=== PATIENT | female | born 2000 | race Hispanic/Latino ===

== ENCOUNTER 2018-01-29 09:33 | Emergency (ER) | payer OTHER, SELFPAY ==
--- NOTE | 2018-01-29 10:11 | EDPHYS ---
Physician Documentation [facility] Name: Brenda Nguyen Age: 17 yrs Sex: Female : 2000 Arrival Date: 01/29/2018 Time: 09:37 Bed 14 Private MD: ED Physician Salvador Ochoa HPI: 01/29 09:58 This 17 yrs old Female presents to ER via Unassigned with complaints of gs Cough,Sore Throat, Headache. 09:58 The patient or guardian reports cough, that is intermittent, flu symptoms, low-grade gs fever, myalgias. Onset: The symptoms/episode began/occurred 2 day(s) ago. Severity of symptoms: At their worst the symptoms were moderate, in the emergency department the symptoms are unchanged. Associated signs and symptoms: Pertinent positives: sore throat. The patient has experienced similar episodes in the past, a few times. 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 ae1 Historical: - Allergies: 10:05 No Known Allergies; gs - Immunization history:: Adult Immunizations up to date. - Social history:: The patient lives at home, Smoking status: Patient/guardian denies using tobacco, but has a distant history of tobacco abuse. ROS: 10:05 ENT: Positive for sinus pain. gs 10:05 Respiratory: Negative for shortness of breath. 10:05 All other systems are negative. 10:05 : Positive for . gs Exam: 10:05 Head/Face: Normocephalic, atraumatic. Eyes: Pupils equal round and reactive to light, gs extra-ocular motions intact. Lids and lashes normal. Conjunctiva and sclera are non-icteric and not injected. Cornea within normal limits. Periorbital areas with no swelling, redness, or edema. Neck: Trachea midline, no thyromegaly or masses palpated, and no cervical lymphadenopathy. Supple, full range of motion without nuchal rigidity, or vertebral point tenderness. No Meningismus. Chest/axilla: Normal chest wall appearance and motion. Nontender with no deformity. No lesions are appreciated. Cardiovascular: Regular rate and rhythm with a normal S1 and S2. No gallops, murmurs, or rubs. Normal PMI, no JVD. No pulse deficits. Respiratory: Lungs have equal breath sounds bilaterally, clear to auscultation and percussion. No rales, rhonchi or wheezes noted. No increased work of breathing, no retractions or nasal flaring. Abdomen/GI: Soft, non-tender, with normal bowel sounds. No distension or tympany. No guarding or rebound. No evidence of tenderness throughout. Back: No spinal tenderness. No costovertebral tenderness. Full range of motion. Skin: Warm, dry with normal turgor. Normal color with no rashes, no lesions, and no evidence of cellulitis. MS/ Extremity: Pulses equal, no cyanosis. Neurovascular intact. Full, normal range of motion. Neuro: Awake and alert, GCS 15, oriented to person, place, time, and situation. Cranial nerves II-XII grossly intact. Motor strength 5/5 in all extremities. Sensory grossly intact. Cerebellar exam normal. Normal gait. 10:05 Constitutional: The patient appears alert, awake. 10:05 ENT: TM's: are normal, Nose: Nasal mucosa: edematous, erythematous, Posterior pharynx: gs is normal, airway is patent, no erythema, no exudate. Vital Signs: 10:19 BP 104 / 64; Pulse 89; Resp 19; Temp 97.7(O); Pulse Ox 98% on R/A; Weight 117.93 kg (R);ae1 MDM: 09:55 Patient medically screened. gs 10:05 Differential Diagnosis: Upper Respiratory Infection Sinusitis Viral Syndrome. Data gs reviewed: vital signs, nurses notes. Response to treatment: There is no appreciated change of the patient's symptoms at this time, and as a result, I will discharge patient. Administered Medications: No medications were administered Disposition: 01/29/18 10:11 Discharged to Home. Impression: Acute upper respiratory infection, unspecified. - Condition is Stable. - Discharge Instructions: Upper Respiratory Infection, Adult. - Work release form, Medication Reconciliation Form, Thank You Letter, Antibiotic Education, Prescription Opioid Use form. - Follow up: Private Physician; When: 1 - 2 days; Reason: Re-evaluation by your physician. Signatures: Raymundo Ellison RN RN ae1 Salvador Ochoa MD MD
--- NOTE | 2018-01-29 10:38 | ER ---
Nurse's Notes [facility] Name: Brenda Nguyen Age: 17 yrs Sex: Female : 2000 Arrival Date: 01/29/2018 Time: 09:37 Bed 14 Private MD: Diagnosis: Acute upper respiratory infection, unspecified Presentation: 01/29 10:24 Presenting complaint: Patient states: Patient c/o "cold Symptoms" sore, throat, nasal ae1 congestion and headache. Patient states she is 27 weeks . Transition of care: patient was not received from another setting of care. Initial Sepsis Screen: Does the patient meet any 2 criteria? No. Patient's initial sepsis screen is negative. Does the patient have a suspected source of infection? No. Patient's initial sepsis screen is negative. 10:24 Acuity: DAIANA 4 ae1 10:24 Method Of Arrival: Ambulatory ae1 10:29 Care prior to arrival: None. ae1 10:32 Onset of symptoms was January 26, 2018 at 08:00. 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 ae1 Historical: - Allergies: 10:05 No Known Allergies; gs - Immunization history:: Adult Immunizations up to date. - Social history:: The patient lives at home, Smoking status: Patient/guardian denies using tobacco, but has a distant history of tobacco abuse. Screenin:29 Abuse screen: Denies threats or abuse. Nutritional screening: No deficits noted. ae1 Tuberculosis screening: No symptoms or risk factors identified. Fall Risk None identified. Assessment: 10:25 General: Appears in no apparent distress. comfortable, obese, Behavior is calm, ae1 cooperative. Pain: Complains of pain in head and back of head. Neuro: Level of Consciousness is awake, alert, obeys commands, Oriented to person, place, time, situation. Cardiovascular: Heart tones S1 S2 present Patient's skin is warm and dry. Respiratory: Airway is patent Respiratory effort is even, unlabored, Breath sounds are clear bilaterally. GI: No signs and/or symptoms were reported involving the gastrointestinal system. Abdomen is round obese. : No signs and/or symptoms were reported regarding the genitourinary system. EENT: Throat is pink. Derm: Skin is pale. Musculoskeletal: No signs and/or symptoms reported regarding the musculoskeletal system. Vital Signs: 10:19 BP 104 / 64; Pulse 89; Resp 19; Temp 97.7(O); Pulse Ox 98% on R/A; Weight 117.93 kg (R);ae1 ED Course: 09:37 Patient arrived in ED. rg4 09:43 Salvador Ochoa MD is Attending Physician. 09:53 Raymundo Ellison, RN is Primary Nurse. ae1 10:25 Triage completed. ae1 10:27 Bed in low position. Call light in reach. Side rails up X 1. Pulse ox on. NIBP on. ae1 10:29 Arm band placed on right wrist. ae1 10:37 No provider procedures requiring assistance completed. Patient did not have IV access ae1 during this emergency room visit. Administered Medications: No medications were administered Outcome: 10:11 Discharge ordered by . gs 10:37 Discharged to home ambulatory. ae1 10:37 Condition: stable 10:37 Discharge instructions given to patient, Instructed on discharge instructions, follow up and referral plans. Demonstrated understanding of instructions. 10:37 Patient left the ED. ae1 Signatures: Raymundo Ellison, RN RN ae1 Christin Sepulveda rg4 Salvador Ochoa MD MD
[2018-01-29 10:49] VITALS: BP 104/64; TEMP 97.7; O2SAT 98
== END 2018-01-29 10:37 | disposition home or self-care (01) ==
LOC: ER 09:33
DX: J06.9 Acute upper respiratory infection, unspecified (principal); Z3A.27 27 weeks gestation of pregnancy
CPT/HCPCS: 99283

== ENCOUNTER 2018-09-28 07:56 | Emergency (ER) | payer OTHER, SELFPAY ==
--- NOTE | 2018-09-28 08:47 | EDPHYS ---
Physician Documentation [facility] Name: Brenda Nguyen Age: 18 yrs Sex: Female : 2000 Arrival Date: 09/28/2018 Time: 07:57 Bed 20 Private MD: None, None ED Physician Irja Dsouza HPI: 09/28 09:09 This 18 yrs old Female presents to ER via Ambulatory with complaints of Flu snw Symptoms. 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 Child dx with influenza. Pt states snw she needs a work excuse. Onset: The symptoms/episode began/occurred 4 day(s) ago, and became persistent. Severity of symptoms: At their worst the symptoms were moderate severe. The patient has not recently seen a physician. hx of asthma. 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 - Social history:: Smoking status: Patient uses tobacco products, smokes one-half pack cigarettes per day. - Ebola Screening: : No symptoms or risks identified at this time. ROS: 08:56 Eyes: Negative for injury, pain, redness, and discharge, ENT: Negative for injury, snw pain, and discharge, Neck: Negative for injury, pain, and swelling, Cardiovascular: Negative for chest pain, palpitations, and edema. 08:56 Abdomen/GI: Negative for abdominal pain, nausea, vomiting, diarrhea, and constipation, Back: Negative for injury and pain, : Negative for injury, bleeding, discharge, and swelling, MS/Extremity: Negative for injury and deformity, Skin: Negative for injury, rash, and discoloration, Neuro: Negative for headache, weakness, numbness, tingling, and seizure. 08:56 Constitutional: Positive for body aches, chills, fatigue, fever, malaise, poor PO intake. 08:56 Respiratory: Positive for cough, shortness of breath, wheezing. Exam: 08:54 Head/Face: Normocephalic, atraumatic. Eyes: Pupils equal round and reactive to light, snw extra-ocular motions intact. Lids and lashes normal. Conjunctiva and sclera are non-icteric and not injected. Cornea within normal limits. Periorbital areas with no swelling, redness, or edema. ENT: Nares patent. No nasal discharge, no septal abnormalities noted. Tympanic membranes are normal and external auditory canals are clear. Oropharynx with no redness, swelling, or masses, exudates, or evidence of obstruction, uvula midline. Mucous membranes moist. Neck: Trachea midline, no thyromegaly or masses palpated, and no cervical lymphadenopathy. Supple, full range of motion without nuchal rigidity, or vertebral point tenderness. No Meningismus. Chest/axilla: Normal chest wall appearance and motion. Nontender with no deformity. No lesions are appreciated. 08:54 Abdomen/GI: Soft, non-tender, with normal bowel sounds. No distension or tympany. No guarding or rebound. No evidence of tenderness throughout. Back: No spinal tenderness. No costovertebral tenderness. Full range of motion. Skin: Warm, dry with normal turgor. Normal color with no rashes, no lesions, and no evidence of cellulitis. MS/ Extremity: Pulses equal, no cyanosis. Neurovascular intact. Full, normal range of motion. Neuro: Awake and alert, GCS 15, oriented to person, place, time, and situation. Cranial nerves II-XII grossly intact. Motor strength 5/5 in all extremities. Sensory grossly intact. Cerebellar exam normal. Normal gait. 08:54 Constitutional: The patient appears alert, awake, obese. 08:54 Cardiovascular: Rate: tachycardic, Pulses: no pulse deficits are appreciated. 08:54 Respiratory: the patient does not display signs of respiratory distress, Respirations: normal, Breath sounds: wheezing: that is mild, that is moderate, is heard in the left posterior lower lobe, right posterior middle lobe and right posterior lower lobe. Vital Signs: 08:16 BP 149 / 87; Pulse 115; Resp 18; Temp 98.4(O); Pulse Ox 96% on R/A; Pain 3/10; em 09:26 BP 138 / 79; Pulse 98; Resp 18; Pulse Ox 98% on R/A; em MDM: 08:17 Patient medically screened. snw 08:56 Data reviewed: vital signs, nurses notes. Data interpreted: Pulse oximetry: on room air snw is 96 %. Interpretation: acceptable. Counseling: I had a detailed discussion with the patient and/or guardian regarding: the historical points, exam findings, and any diagnostic results supporting the discharge/admit diagnosis, the presence of at least one elevated blood pressure reading (>120/80) during this emergency department visit, lab results, the need for outpatient follow up, to return to the emergency department if symptoms worsen or persist or if there are any questions or concerns that arise at home. Special discussion: Based on the history and exam findings, there is no indication for further emergent testing or inpatient evaluation. I discussed with the patient/guardian the need to see the primary care provider for further evaluation of the symptoms. ED course: Pt states she came to ED because her child was dx with influenza, the patient is not feeling well and she needs a work excuse. 09/28 08:02 Order name: Flu; Complete Time: 09:08 snw 09/28 08:02 Order name: Strep snw 09/28 08:02 Order name: Urine Microscopic Only; Complete Time: 09:10 snw 09/28 08:37 Order name: Urine Dipstick--Ancillary (enter results); Complete Time: 09:10 bd 09/28 08:53 Order name: Throat Culture EDMA 09/28 09:12 Order name: Urine Culture EDMA 09/28 08:02 Order name: Urine Test (obtain specimen); Complete Time: 08:34 snw 09/28 08:02 Order name: Urine Dipstick-Ancillary (obtain specimen); Complete Time: 08:34 snw Administered Medications: 08:50 Drug: Albuterol 2.5 mg Route: Inhalation; em 09:00 Follow up: Response: No adverse reaction em Disposition: 09/28/18 08:46 Discharged to Home. Impression: Influenza due to unidentified influenza virus, Asthma. - Condition is Stable. - Discharge Instructions: Asthma, Adult, Fever, Adult, Hypertension, Influenza, Adult, Steps to Quit Smoking, Smoking Hazards, Rehydration, Adult. - Prescriptions for Zofran 4 mg Oral Tablet - take 1 tablet by ORAL route every 12 hours As needed; 20 tablet. Albuterol Sulfate 90 mcg/actuation - inhale 1-2 puff by INHALATION route every 4-6 hours; 1 Inhaler. - Work release form, Medication Reconciliation Form, Thank You Letter, Antibiotic Education, Prescription Opioid Use form. - Follow up: Emergency Department; When: As needed; Reason: Trouble breathing, Worsening of condition. Follow up: Private Physician; When: 2 - 3 days; Reason: Recheck today's complaints, Continuance of care, Re-evaluation by your physician. Addendum: 09/30/2018 15:24 Co-signature as Attending Physician, Iraj Dsouza MD. m a2 Signatures: Dispatcher [employer] EDMS Sagrario Alford, SENIOR GRANT WRITER-C SENIOR GRANT WRITER-Csnw Donn Bates, SHUTTLE FINAL INSPECTOR SHUTTLE FINAL INSPECTOR em Em Irby, RN RN Iraj Dsouza MD MD ma2 Corrections: (The following items were deleted from the chart) 09/28 09:27 08:46 09/28/2018 08:46 Discharged to Home. Impression: Influenza due to unidentified em influenza virus; Asthma. Condition is Stable. Forms are Medication Reconciliation Form, Thank You Letter, Antibiotic Education, Prescription Opioid Use. Follow up: Emergency Department; When: As needed; Reason: Trouble breathing, Worsening of condition. Follow up: Private Physician; When: 2 - 3 days; Reason: Recheck today's complaints, Continuance of care, Re-evaluation by your physician. snw
--- NOTE | 2018-09-28 08:47 | ER ---
Nurse's Notes [facility] Name: Brenda Nguyen Age: 18 yrs Sex: Female : 2000 Arrival Date: 09/28/2018 Time: 07:57 Bed 20 Private MD: None, None Diagnosis: Influenza due to unidentified influenza virus;Asthma Presentation: 09/28 08:14 Presenting complaint: Patient states: Body aches, subjective fever, nonproductive hb cough, mild SOB, and malaise x 4 days. Family member recently dx with flu. Transition of care: patient was not received from another setting of care. Onset of symptoms was September 24, 2018. Risk Assessment: Do you want to hurt yourself or someone else? Patient reports no desire to harm self or others. Care prior to arrival: None. 08:14 Method Of Arrival: Ambulatory hb 08:14 Acuity: DAIANA 3 hb 08:25 Initial Sepsis Screen: Does the patient meet any 2 criteria? No. Patient's initial em sepsis screen is negative. Does the patient have a suspected source of infection? No. Patient's initial sepsis screen is negative. 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 - Social history:: Smoking status: Patient uses tobacco products, smokes one-half pack cigarettes per day. - Ebola Screening: : No symptoms or risks identified at this time. Screenin:17 Abuse screen: Denies threats or abuse. Denies injuries from another. Nutritional hb screening: No deficits noted. Tuberculosis screening: No symptoms or risk factors identified. Fall Risk None identified. Assessment: 08:30 General: Appears in no apparent distress. uncomfortable, Behavior is calm, cooperative, em Reports fever for feeling ill for. Pain: Complains of pain in chest Pain currently is 3 out of 10 on a pain scale. Neuro: Level of Consciousness is awake, alert, obeys commands, Oriented to person, place, time, situation. Cardiovascular: Patient's skin is warm and dry. Respiratory: Reports cough that is productive, pain with cough Airway is patent Respiratory effort is even, unlabored, Respiratory pattern is regular, symmetrical, Breath sounds with wheezes in left posterior lower lobe and right posterior lower lobe. GI:. : Urine is clear. EENT: Reports nasal congestion nasal discharge sore throat. Derm: Skin is intact, is healthy with good turgor, Skin is pink, warm \T\ dry. Musculoskeletal: Range of motion: intact in all extremities. 08:40 Reassessment: I agree with previous assessment. hb 09:26 Reassessment: Patient appears in no apparent distress at this time. Patient and/or em family updated on plan of care and expected duration. Pain level reassessed. Patient is alert, oriented x 3, equal unlabored respirations, skin warm/dry/pink. Patient states feeling better. Vital Signs: 08:16 BP 149 / 87; Pulse 115; Resp 18; Temp 98.4(O); Pulse Ox 96% on R/A; Pain 3/10; em 09:26 BP 138 / 79; Pulse 98; Resp 18; Pulse Ox 98% on R/A; em ED Course: 07:57 Patient arrived in ED. mr 07:58 None, None is Private Physician. mr 08:01 Sagrario Alford, PINA is [facility]. snw 08:01 Iraj Dsouza MD is Attending Physician. snw 08:12 Donn Bates LVN is Primary Nurse. em 08:16 Triage completed. hb 08:16 Arm band placed on. hb 08:30 Patient has correct armband on for positive identification. Bed in low position. Call em light in reach. Pulse ox on. NIBP on. 08:35 Urine collected: clean catch specimen, clear, Flu and/or RSV swab sent to lab. Strep em swab sent to lab. 08:54 No provider procedures requiring assistance completed. Patient did not have IV access em during this emergency room visit. Administered Medications: 08:50 Drug: Albuterol 2.5 mg Route: Inhalation; em 09:00 Follow up: Response: No adverse reaction em Outcome: 08:46 Discharge ordered by . snw 09:26 Discharged to home ambulatory. em 09:26 Condition: good 09:26 Discharge instructions given to patient, Instructed on discharge instructions, follow up and referral plans. medication usage, Demonstrated understanding of instructions, follow-up care, medications, Prescriptions given X 2. 09:27 Patient left the ED. em Signatures: Sagrario Alford, SED MIDDLE SCHOOL TEACHER-C SED MIDDLE SCHOOL TEACHER-Csnw Jannie Mittal mr Bates, Donn, FIRESTOPPER INSTALLER FIRESTOPPER INSTALLER em Em Irby, RN RN hb Corrections: (The following items were deleted from the chart) 08:39 08:16 BP 149 / 87; Pulse 115bpm; Resp 18bpm; Temp 98.4F Oral; Pain 3/10; hb em
[2018-09-28] MEDS ORDERED: ALBUTEROL 2.5 MG/3 ML NEB SOL ONE (08:52)
[2018-09-28 09:09] LABS: Urine Bacteria 20-50 /HPF (<20); Urine Culture Reflex Order REFLEXED; Urine Mucus 2+ /HPF (NONE SEEN)
[2018-09-28 09:10] LABS: Urine Blood 2+ (NEG); Urine Glucose NEGATIVE (NEG); Urine Protein NEGATIVE (NEG); Urine Specific Gravity 1.025 (1.005-1.030); Urine pH 5.5 (5.0-7.0)
[2018-09-28 10:00] VITALS: TEMP 98.4
[2018-09-28 10:02] VITALS: BP 138/79; O2SAT 98
== END 2018-09-28 09:27 | disposition home or self-care (01) ==
LOC: ER 07:56
DX: J11.1 Influenza due to unidentified influenza virus with other respiratory manifestations (principal); J45.909 Unspecified asthma, uncomplicated
CPT/HCPCS: 81003; 81015; 87070; 87081; 87086; 87088; 87804; 99284

== ENCOUNTER 2018-12-20 15:37 | Emergency (ER) | payer SELFPAY ==
--- OUTSIDE RECORDS SUMMARY | 2018-12-20 15:39 | XMS REPORT ---
:2000 [facility] [address] [place] [address] Care Team Providers Name Role Phone Unavailable Unavailable Unavailable Problems This patient has no known problems. Allergies, Adverse Reactions, Alerts This patient has no known allergies or adverse reactions. Medications This patient has no known medications.
[2018-12-20] MEDS ORDERED: MAGNE/ALUM HYDROXD 30 ML UCUP ONE (16:35)
[2018-12-20] MEDS ORDERED: ONDANSETRON 4 MG (ODT) TAB ONE (16:35)
[2018-12-20] MEDS ORDERED: LIDOCAINE VISCOUS 2% SOLN 15 ML UDC ONE (16:36)
[2018-12-20 17:04] LABS: Urine Bacteria 20-50 /HPF (<20); Urine Culture Reflex Order REFLEXED; Urine RBC <5 /HPF (NONE SEEN)
[2018-12-20 17:09] LABS: Urine Blood NEGATIVE (NEG); Urine Glucose NEGATIVE (NEG); Urine Protein 1+ (NEG); Urine Specific Gravity >1.030 (1.005-1.030); Urine pH 5.5 (5.0-7.0)
--- NOTE | 2018-12-20 17:29 | ER ---
Nurse's Notes [facility] Name: Brenda Nguyen Age: 18 yrs Sex: Female : 2000 Arrival Date: 12/20/2018 Time: 15:39 Bed 15 Private MD: None, None Diagnosis: Urinary tract infection, site not specified;Generalized abdominal pain;Vomiting, unspecified;Diarrhea, unspecified Presentation: 12/20 15:52 Presenting complaint: Patient states: epigastric pain, n/v/d x 1 day. Transition of sv care: patient was not received from another setting of care. Onset of symptoms was December 19, 2018. Care prior to arrival: None. 15:52 Method Of Arrival: Ambulatory sv 15:52 Acuity: DAIANA 3 sv 17:46 Risk Assessment: Do you want to hurt yourself or someone else? Patient reports no bp desire to harm self or others. Initial Sepsis Screen: Does the patient meet any 2 criteria? No. Patient's initial sepsis screen is negative. Does the patient have a suspected source of infection? No. Patient's initial sepsis screen is negative. Triage Assessment: 16:00 General: Appears in no apparent distress. comfortable, obese, Behavior is calm, bp cooperative, appropriate for age. Pain: Complains of pain in epigastric area. GI: Reports nausea, vomiting. 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 - Social history:: Smoking status: Patient/guardian denies using tobacco. - Ebola Screening: : Patient negative for fever greater than or equal to 101.5 degrees Fahrenheit, and additional compatible Ebola Virus Disease symptoms Patient denies exposure to infectious person Patient denies travel to an Ebola-affected area in the 21 days before illness onset No symptoms or risks identified at this time. Screenin:00 Abuse screen: Denies threats or abuse. Denies injuries from another. Nutritional bp screening: No deficits noted. Tuberculosis screening: No symptoms or risk factors identified. Fall Risk None identified. Assessment: 16:00 General: Appears in no apparent distress. comfortable, obese, Behavior is cooperative, bp appropriate for age, anxious. Pain: Complains of pain in epigastric area. Neuro: Level of Consciousness is awake, alert, obeys commands. Cardiovascular: No deficits noted. Respiratory: Airway is patent Respiratory effort is even, unlabored, Respiratory pattern is regular, symmetrical. GI: Bowel sounds present X 4 quads. Abd is soft X 4 quads. : No signs and/or symptoms were reported regarding the genitourinary system. EENT: No deficits noted. Derm: No deficits noted. Musculoskeletal: Circulation, motion, and sensation intact. Range of motion:. 17:46 Reassessment: PT D/C HOME AMBULATORY, DX WITH UTI. bp Vital Signs: 15:53 BP 133 / 79; Pulse 89; Resp 18; Temp 97.8; Pulse Ox 98% ; Weight 131.54 kg; Height 5 sv ft. 2 in. (157.48 cm); Pain 6/10; 17:30 BP 130 / 81; Pulse 75; Resp 16; Pulse Ox 98% ; bp 15:53 Body Mass Index 53.04 (131.54 kg, 157.48 cm) sv ED Course: 15:39 Patient arrived in ED. mr 15:40 None, None is Private Physician. mr 15:40 Sagr[facility] Alford [facility] snw 15:40 Rancho Charles MD is Attending Physician. snw 15:53 Triage completed. sv 15:54 Arm band placed on. sv 15:55 Lit Kc, JAIDEN is Primary Nurse. bp 16:00 Patient has correct armband on for positive identification. Bed in low position. Call bp light in reach. Side rails up X2. 17:43 No provider procedures requiring assistance completed. Patient did not have IV access bp during this emergency room visit. Administered Medications: 16:20 Drug: Zofran 4 mg Route: PO; bp 17:48 Follow up: Response: No adverse reaction bp 16:20 Drug: GI Cocktail without - (Maalox Suspension 30 ml, Lidocaine Liquid 2 % 15 bp ml) Route: PO; 17:48 Follow up: Response: No adverse reaction bp Outcome: 17:28 Discharge ordered by . snw 17:45 Discharged to home ambulatory. bp 17:45 Condition: stable 17:45 Discharge instructions given to patient, Instructed on discharge instructions, follow up and referral plans. medication usage, Demonstrated understanding of instructions, follow-up care, medications, Prescriptions given X 2. 17:48 Patient left the ED. bp Signatures: Tracie Goff RN RN Sagrario Alford, LOTUS-C SOLUTIONS OPERATOR-Juan Manuelw Jannie Mittal Lit Kc, RN RN bp Corrections: (The following items were deleted from the chart) 15:54 15:53 Resp 18bpm; Temp 97.8F; 131.54 kg; Height 5 ft. 2 in.; BMI: 53.0; Pain 6/10; sv sv 15:55 15:53 Pulse 89bpm; Resp 18bpm; Pulse Ox 98%; Temp 97.8F; 131.54 kg; Height 5 ft. 2 in.; sv BMI: 53.0; Pain 6/10; sv
--- NOTE | 2018-12-20 17:29 | EDPHYS ---
Physician Documentation [facility] Name: Brenda Nguyen Age: 18 yrs Sex: Female : 2000 Arrival Date: 12/20/2018 Time: 15:39 Bed 15 Private MD: None, None ED Physician Rancho Charles HPI: 12/20 16:23 This 18 yrs old Female presents to ER via Ambulatory with complaints of snw Abdominal Pain, Nausea/Vomiting. 16:23 The patient presents with abdominal pain in the epigastric area, in the upper abdomen. snw Onset: The symptoms/episode began/occurred suddenly, 2 day(s) ago, and became persistent. The symptoms do not radiate. Associated signs and symptoms: Pertinent positives: nausea, vomiting, and diarrhea, fever. The symptoms are described as crampy. Severity of pain: At its worst the pain was mild moderate. The patient has experienced a previous episode. It is unknown whether or not the patient has recently seen a physician. 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 - Social history:: Smoking status: Patient/guardian denies using tobacco. - Ebola Screening: : Patient negative for fever greater than or equal to 101.5 degrees Fahrenheit, and additional compatible Ebola Virus Disease symptoms Patient denies exposure to infectious person Patient denies travel to an Ebola-affected area in the 21 days before illness onset No symptoms or risks identified at this time. ROS: 16:22 Eyes: Negative for injury, pain, redness, and discharge, ENT: Negative for injury, snw pain, and discharge, Neck: Negative for injury, pain, and swelling, Cardiovascular: Negative for chest pain, palpitations, and edema, Respiratory: Negative for shortness of breath, cough, wheezing, and pleuritic chest pain, Back: Negative for injury and pain, : Negative for injury, bleeding, discharge, and swelling, MS/Extremity: Negative for injury and deformity, Skin: Negative for injury, rash, and discoloration, Neuro: Negative for headache, weakness, numbness, tingling, and seizure. 16:22 Constitutional: Positive for body aches, chills, fever, malaise, poor PO intake. 16:22 Abdomen/GI: Positive for abdominal pain, nausea, vomiting, and diarrhea. Exam: 16:22 Head/Face: Normocephalic, atraumatic. Eyes: Pupils equal round and reactive to light, snw extra-ocular motions intact. Lids and lashes normal. Conjunctiva and sclera are non-icteric and not injected. Cornea within normal limits. Periorbital areas with no swelling, redness, or edema. ENT: Nares patent. No nasal discharge, no septal abnormalities noted. Tympanic membranes are normal and external auditory canals are clear. Oropharynx with no redness, swelling, or masses, exudates, or evidence of obstruction, uvula midline. Mucous membranes moist. Neck: Trachea midline, no thyromegaly or masses palpated, and no cervical lymphadenopathy. Supple, full range of motion without nuchal rigidity, or vertebral point tenderness. No Meningismus. Chest/axilla: Normal chest wall appearance and motion. Nontender with no deformity. No lesions are appreciated. Cardiovascular: Regular rate and rhythm with a normal S1 and S2. No gallops, murmurs, or rubs. Normal PMI, no JVD. No pulse deficits. Respiratory: Lungs have equal breath sounds bilaterally, clear to auscultation and percussion. No rales, rhonchi or wheezes noted. No increased work of breathing, no retractions or nasal flaring. Back: No spinal tenderness. No costovertebral tenderness. Full range of motion. Skin: Warm, dry with normal turgor. Normal color with no rashes, no lesions, and no evidence of cellulitis. MS/ Extremity: Pulses equal, no cyanosis. Neurovascular intact. Full, normal range of motion. Neuro: Awake and alert, GCS 15, oriented to person, place, time, and situation. Cranial nerves II-XII grossly intact. Motor strength 5/5 in all extremities. Sensory grossly intact. Cerebellar exam normal. Normal gait. Psych: Awake, alert, with orientation to person, place and time. Behavior, mood, and affect are within normal limits. 16:22 Constitutional: The patient appears alert, awake, obese. 16:22 Abdomen/GI: Inspection: obese Bowel sounds: normal, Palpation: moderate abdominal tenderness, in the epigastric area, right upper quadrant and left upper quadrant. Vital Signs: 15:53 BP 133 / 79; Pulse 89; Resp 18; Temp 97.8; Pulse Ox 98% ; Weight 131.54 kg; Height 5 sv ft. 2 in. (157.48 cm); Pain 6/10; 17:30 BP 130 / 81; Pulse 75; Resp 16; Pulse Ox 98% ; bp 15:53 Body Mass Index 53.04 (131.54 kg, 157.48 cm) sv MDM: 15:55 Patient medically screened. kelli 17:30 Data reviewed: vital signs, nurses notes. Data interpreted: Pulse oximetry: on room air snw is 98 %. Interpretation: normal. Counseling: I had a detailed discussion with the patient and/or guardian regarding: the historical points, exam findings, and any diagnostic results supporting the discharge/admit diagnosis, the presence of at least one elevated blood pressure reading (>120/80) during this emergency department visit, lab results, the need for outpatient follow up, for definitive care, to return to the emergency department if symptoms worsen or persist or if there are any questions or concerns that arise at home. Special discussion: Based on the history and exam findings, there is no indication for further emergent testing or inpatient evaluation. I discussed with the patient/guardian the need to see the primary care provider for further evaluation of the symptoms. 12/20 16:11 Order name: Flu; Complete Time: 17:27 snw 12/20 16:11 Order name: Urine Microscopic Only; Complete Time: 17:06 snw 12/20 16:45 Order name: Urine Dipstick--Ancillary (enter results); Complete Time: 17:11 bd 12/20 16:45 Order name: Urine --Ancillary (enter results); Complete Time: 17:11 bd 12/20 17:06 Order name: Urine Culture EDMS 12/20 16:11 Order name: Urine Test (obtain specimen); Complete Time: 16:37 snw 12/20 16:11 Order name: Urine Dipstick-Ancillary (obtain specimen); Complete Time: 16:37 snw Administered Medications: 16:20 Drug: Zofran 4 mg Route: PO; bp 17:48 Follow up: Response: No adverse reaction bp 16:20 Drug: GI Cocktail without - (Maalox Suspension 30 ml, Lidocaine Liquid 2 % 15 bp ml) Route: PO; 17:48 Follow up: Response: No adverse reaction bp Disposition: 12/21 08:08 Co-signature as Attending Physician, Rancho Charles MD I agree with the assessment and kelli plan of care. Disposition: 12/20/18 17:28 Discharged to Home. Impression: Urinary tract infection, site not specified, Generalized abdominal pain, Vomiting, unspecified, Diarrhea, unspecified. - Condition is Stable. - Discharge Instructions: Food Choices to Help Relieve Diarrhea, Adult, Diarrhea, Adult, Nausea and Vomiting, Adult, Urinary Tract Infection, Adult, Rehydration, Adult, [place] Diet. - Prescriptions for Zofran 4 mg Oral Tablet - take 1 tablet by ORAL route every 6 hours As needed; 20 tablet. Macrobid 100 mg Oral Capsule - take 1 capsule by ORAL route every 12 hours for 10 days; 20 capsule. - Work release form, Medication Reconciliation Form, Thank You Letter, Antibiotic Education, Prescription Opioid Use form. - Follow up: Private Physician; When: 2 - 3 days; Reason: Recheck today's complaints, Continuance of care, Re-evaluation by your physician. Follow up: Emergency Department; When: As needed; Reason: Worsening of condition. Signatures: Dispatcher [employer] Tracie Lira, RN Rancho Montgomery MD MD cha Therrien, Shelly, DRIER TAKE OFF TENDER-C DRIER TAKE OFF TENDER-Csnw Lit Kc RN RN bp Corrections: (The following items were deleted from the chart) 12/20 17:48 17:28 12/20/2018 17:28 Discharged to Home. Impression: Urinary tract infection, site bp not specified; Generalized abdominal pain; Vomiting, unspecified; Diarrhea, unspecified. Condition is Stable. Forms are Medication Reconciliation Form, Thank You Letter, Antibiotic Education, Prescription Opioid Use. Follow up: Private Physician; When: 2 - 3 days; Reason: Recheck today's complaints, Continuance of care, Re-evaluation by your physician. Follow up: Emergency Department; When: As needed; Reason: Worsening of condition. snw
[2018-12-20 18:00] VITALS: BP 130/81; O2SAT 98
[2018-12-20 18:01] VITALS: TEMP 97.8
== END 2018-12-20 17:48 | disposition home or self-care (01) ==
LOC: ER 15:37
DX: N39.0 Urinary tract infection, site not specified (principal); R19.7 Diarrhea, unspecified; R11.10 Vomiting, unspecified
CPT/HCPCS: 81003; 81015; 81025; 87086; 87088; 87804; 99283

== ENCOUNTER 2019-03-28 21:06 | Emergency (ER) | payer SELFPAY ==
--- OUTSIDE RECORDS SUMMARY | 2019-03-28 21:08 | XMS REPORT ---
:2000 [facility] Address [address] [place] [address] [address] [place] [address] Care Team Providers Name Role Phone Unavailable Unavailable Unavailable Problems This patient has no known problems. Allergies, Adverse Reactions, Alerts This patient has no known allergies or adverse reactions. Medications This patient has no known medications.
[2019-03-28] MEDS ORDERED: FAMOTIDINE 20 MG/2 ML VIAL IV ONE (22:00)
[2019-03-28] MEDS ORDERED: MAGNE/ALUM HYDROXD 30 ML UCUP ONE (22:00)
[2019-03-28] MEDS ORDERED: NA CHLORIDE 0.9% 1,000 ML ONE (22:01)
[2019-03-28] MEDS ORDERED: LIDOCAINE VISCOUS 2% SOLN 15 ML UDC ONE (22:01)
[2019-03-28 22:05] LABS: Urine Specific Gravity >1.030 (1.005-1.030)
[2019-03-28 22:05] LABS: Urine Blood NEGATIVE (NEG); Urine Glucose NEGATIVE (NEG); Urine Protein TRACE (NEG); Urine Specific Gravity >1.030 (1.005-1.030); Urine pH 5.5 (5.0-7.0)
[2019-03-28 22:11] LABS: Urine Amorphous Sediment TRACE /HPF (NONE SEEN); Urine Bacteria <20 /HPF (<20); Urine Culture Reflex Order NOT NEEDED; Urine RBC NONE SEEN /HPF (NONE SEEN)
[2019-03-28 22:14] LABS: ALT/SGPT 23 U/L (12-78); AST/SGOT 16 U/L (15-37); Albumin 3.6 g/dL (3.4-5.0); Alkaline Phosphatase 107 U/L (45-117); BUN Blood Urea Nitrogen 13 mg/dL (7-18); Bicarbonate 24 mmol/L (21-32); Bilirubin Direct 0.2 mg/dL (0-0.2); Bilirubin Total 0.9 mg/dL (0.2-1.0); Glucose Level 117 mg/dL (74-106); Potassium 3.8 mmol/L (3.5-5.1); Protein, Total 7.1 g/dL (6.4-8.2); Sodium Level 142 mmol/L (136-145)
[2019-03-28 22:20] LABS: Absolute Lymphocytes (CBC) 1.8 K/uL (0.7-4.9); Basophils % 0.2 % (0-1.3); Hematocrit 41.9 % (36.0-45.0); Lymphocytes % 23.3 % (15.3-44.8); MPV 8.9 fL (7.6-11.3); Monocytes % 6.4 % (3.3-12.3); RBC Red Blood Cell Count 4.98 M/uL (3.86-4.86)
--- NOTE | 2019-03-28 22:38 | EDPHYS ---
Physician Documentation [facility] Name: Brenda Nguyen Age: 18 yrs Sex: Female : 2000 Arrival Date: 03/28/2019 Time: 21:13 Bed 5 Private MD: ED Physician Gary Eagle HPI: 03/28 21:37 This 18 yrs old Female presents to ER via Ambulatory with complaints of rn Abdominal Pain. 21:37 The patient presents with abdominal pain in the epigastric area. Onset: The rn symptoms/episode began/occurred at an unknown time. The symptoms do not radiate. Associated signs and symptoms: Pertinent positives: diarrhea, nausea, Pertinent negatives: blood in stools, chest pain, constipation, dysuria, fever, shortness of breath, vomiting blood. Modifying factors: The symptoms are alleviated by nothing, the symptoms are aggravated by food, pressure. Severity of pain: At its worst the pain was moderate in the emergency department the pain has improved. The patient has experienced similar episodes in the past. Reports happening intermittently for "a while", + epigastric abd pain, worse shortly after eating food, no blood in stool, no trauma, has had gallbladder removed. NO chest pain. Has had acid problems in past but doesn't take daily antacid. No vomiting. Most recently today had spicy soup that made things worse.. 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 - Family history:: not pertinent. - Social history:: Smoking status: unknown. - Ebola Screening: : No symptoms or risks identified at this time. - Hospitalizations: : No recent hospitalization is reported. ROS: 21:37 Constitutional: Negative for fever, chills, and weight loss, Eyes: Negative for injury, rn pain, redness, and discharge, Cardiovascular: Negative for chest pain, palpitations, and edema, Respiratory: Negative for shortness of breath, cough, wheezing, and pleuritic chest pain, Abdomen/GI: + epigastric abd pain Back: Negative for injury and pain, : Negative for injury, bleeding, discharge, and swelling, MS/Extremity: Negative for injury and deformity, Skin: Negative for injury, rash, and discoloration, Neuro: Negative for headache, weakness, numbness, tingling, and seizure. Exam: 21:37 Constitutional: Overweight female, no acute distress, ambulatory to room without rn difficulty or assistance Head/Face: Normocephalic, atraumatic. ENT: MMM Cardiovascular: Tachycardic, regular, no murmur Respiratory: Lungs have equal breath sounds bilaterally, clear to auscultation. No increased work of breathing, no retractions or nasal flaring. Abdomen/GI: soft, mild epigastric tenderness without masses or distension MS/ Extremity: Pulses equal, no cyanosis. Neurovascular intact. Full, normal range of motion. Equal circumference. Neuro: Awake and alert, GCS 15, oriented to person, place, time, and situation. Cranial nerves II-XII grossly intact. Motor strength 5/5 in all extremities. Sensory grossly intact. Cerebellar exam normal. Normal gait. Vital Signs: 21:14 BP 124 / 47; Pulse 110; Resp 19; Temp 97.8; Pulse Ox 97% on R/A; Weight 142.88 kg; aj Height 5 ft. 2 in. (157.48 cm); 23:00 BP 99 / 61; Pulse 104; Resp 16 S; Temp 98.2(O); Pulse Ox 98% on R/A; bb 21:14 Body Mass Index 57.61 (142.88 kg, 157.48 cm) aj MDM: 21:30 Patient medically screened. rn 22:36 Differential diagnosis: gastritis, gastroesophageal reflux disease, non-specific abd rn pain, pancreatitis, Peptic Ulcer Disease. Data reviewed: vital signs, nurses notes, lab test result(s), and as a result, I will discharge patient. Counseling: I had a detailed discussion with the patient and/or guardian regarding: the historical points, exam findings, and any diagnostic results supporting the discharge/admit diagnosis, lab results, the need for outpatient follow up, to return to the emergency department if symptoms worsen or persist or if there are any questions or concerns that arise at home. Response to treatment: the patient's symptoms have mildly improved after treatment, and as a result, I will discharge patient. Special discussion: Based on the patient's Hx, exam, and Dx evaluation, there is no indication for emergent surgery or inpatient Tx. It is understood by the patient/guardian that if the Sx's persist or worsen they need to return immediately for re-evaluation. I discussed with the patient/guardian in detail that at this point there is no indication for admission to the hospital. It is understood, however, that if the symptoms persist or worsen the patient needs to return immediately for re-evaluation. Based on the history and exam findings, there is no indication for further emergent testing or inpatient evaluation. I discussed with the patient/guardian the need to see the head of data for further evaluation of the symptoms. ED course: Gave patient information regarding better diet, weight loss, and talked about acid management. Will dc home. . 03/28 21:21 Order name: Urine Microscopic Only; Complete Time: 22:35 [facility] 03/28 21:31 Order name: Basic Metabolic Panel; Complete Time: 22:35 03/28 21:31 Order name: CBC with Diff; Complete Time: 22:35 03/28 21:31 Order name: Hepatic Function; Complete Time: 22:35 03/28 21:31 Order name: Lipase; Complete Time: 22:35 03/28 21:59 Order name: Urine Dipstick--Ancillary (enter results); Complete Time: 22:35 [facility] 03/28 21:21 Order name: Urine Test (obtain specimen); Complete Time: 21:59 [facility] 03/28 21:21 Order name: Urine Dipstick-Ancillary (obtain specimen); Complete Time: 21:59 [facility] 03/28 22:00 Order name: Urine --Ancillary (enter results); Complete Time: 22:35 [facility] 03/28 21:31 Order name: IV Saline Lock; Complete Time: 21:45 03/28 21:31 Order name: Labs collected and sent; Complete Time: 21:45 rn Administered Medications: 21:55 Drug: NS 0.9% 1000 ml Route: IV; Rate: 1000 ml; Site: right antecubital; bb 22:50 Follow up: IV Status: Completed infusion; IV Intake: 1000ml bb :55 Drug: GI Cocktail without - (Maalox Suspension 30 ml, Lidocaine Liquid 2 % 15 bb ml) Route: PO; 22:38 Follow up: Response: Marked relief of symptoms bb 21:55 Drug: Pepcid 20 mg Route: IVP; Site: right antecubital; bb 22:38 Follow up: Response: Marked relief of symptoms bb 22:13 CANCELLED (Other Intervention Used): Pepcid 20 mg PO once bb Disposition: 03/28/19 22:37 Discharged to Home. Impression: Gastritis, unspecified, without bleeding. - Condition is Stable. - Discharge Instructions: Gastritis, Adult. - Prescriptions for Zantac 300 mg Oral Tablet - take 1 tablet by ORAL route At bedtime; 30 tablet. - Medication Reconciliation Form, Thank You Letter, Antibiotic Education, Prescription Opioid Use form. - Follow up: Miguel Crockett MD; When: As needed; Reason: Recheck today's complaints, Re-evaluation by your physician. - Problem is new. - Symptoms have improved. Signatures: Dispatcher [employer] EDMS Sue Limon, RN RN Sagrario Nieves, CABLE ENGINEER OUTSIDE PLANT-C CABLE ENGINEER OUTSIDE PLANT-Csnw Kathy Gary RN RN Gary Domínguez MD MD rn Corrections: (The following items were deleted from the chart) 21:42 21:22 Abdomen Limited+[id number].RAD.BRZ ordered. EDWA EDMS 22:13 21:37 Pepcid 20 mg PO once ordered. rn bb 22:13 21:55 Pepcid 20 mg PO once given. bb bb 22:13 21:55 Pepcid 20 mg PO once ordered. bb bb 23:01 22:37 03/28/2019 22:37 Discharged to Home. Impression: Gastritis, unspecified, without bb bleeding. Condition is Stable. Forms are Medication Reconciliation Form, Thank You Letter, Antibiotic Education, Prescription Opioid Use. Follow up: Miguel Crockett; When: As needed; Reason: Recheck today's complaints, Re-evaluation by your physician. Problem is new. Symptoms have improved. rn
--- NOTE | 2019-03-28 22:38 | ER ---
Nurse's Notes [facility] Name: Brenda Nguyen Age: 18 yrs Sex: Female : 2000 Arrival Date: 03/28/2019 Time: 21:13 Bed 5 Private MD: Diagnosis: Gastritis, unspecified, without bleeding Presentation: 03/28 21:13 Presenting complaint: Patient states: Upper abdominal pain that started 2 days ago. aj Care prior to arrival: None. 21:13 Method Of Arrival: Ambulatory aj 21:13 Acuity: DAIANA 3 aj 21:58 Transition of care: patient was not received from another setting of care. Onset of bb symptoms was March 26, 2019. Risk Assessment: Do you want to hurt yourself or someone else? Patient reports desire/thoughts of hurting themselves or someone else. Provider notified. Initial Sepsis Screen: Does the patient meet any 2 criteria? No. Patient's initial sepsis screen is negative. Does the patient have a suspected source of infection? No. Patient's initial sepsis screen is negative. Triage Assessment: 21:14 General: Appears in no apparent distress. comfortable, Behavior is calm, cooperative, aj appropriate for age. Pain: Complains of pain in right upper quadrant and left upper quadrant. Respiratory: Airway is patent Respiratory effort is even, unlabored, Respiratory pattern is regular, symmetrical. GI: Abdomen is obese. GI: Reports upper abdominal pain. Derm: Skin is intact, is healthy with good turgor, Skin is pink, warm \T\ dry. normal. 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 - Family history:: not pertinent. - Social history:: Smoking status: unknown. - Ebola Screening: : No symptoms or risks identified at this time. - Hospitalizations: : No recent hospitalization is reported. Screenin:56 Abuse screen: Denies threats or abuse. Nutritional screening: No deficits noted. bb Tuberculosis screening: No symptoms or risk factors identified. Fall Risk None identified. Assessment: 21:56 General: Appears in no apparent distress. uncomfortable, obese, Behavior is calm, bb cooperative, Reports abdominal pain and diarrhea x 2 days. Pain: Complains of pain in abdomen Pain currently is 6 out of 10 on a pain scale. Neuro: Level of Consciousness is awake, alert, obeys commands, Oriented to person, place, time, situation. Cardiovascular: Heart tones S1 S2 present Capillary refill < 3 seconds Patient's skin is warm and dry. Respiratory: Airway is patent Respiratory effort is even, unlabored, Respiratory pattern is regular. GI: Abdomen is obese, Bowel sounds present X 4 quads. Abd is soft X 4 quads. Derm: Skin is pink, warm \T\ dry. Musculoskeletal: Circulation, motion, and sensation intact. 22:37 Reassessment: pt appears to be sleeping, eyes closed, resp unlabored, IV site intact, bb patent with fluids infusing. 22:57 Reassessment: Patient is alert, oriented x 3, equal unlabored respirations, skin bb warm/dry/pink. pt states she is feeling better and verbalized understanding of and agrees to plan of care discharge instructions given pt ambulated with steady gait to exit. Vital Signs: 21:14 BP 124 / 47; Pulse 110; Resp 19; Temp 97.8; Pulse Ox 97% on R/A; Weight 142.88 kg; aj Height 5 ft. 2 in. (157.48 cm); 23:00 BP 99 / 61; Pulse 104; Resp 16 S; Temp 98.2(O); Pulse Ox 98% on R/A; bb 21:14 Body Mass Index 57.61 (142.88 kg, 157.48 cm) aj ED Course: 21:13 Patient arrived in ED. aj 21:14 Triage completed. aj 21:14 Arm band placed on right wrist. Patient placed in waiting room, Patient notified of aj wait time. 21:30 Gary Eagle MD is Attending Physician. rn 21:38 Kathy Gary, JAIDEN is Primary Nurse. bb 21:45 Initial lab(s) drawn, by sc, sent to lab. Inserted saline lock: 20 gauge in right lt1 antecubital area, using aseptic technique. 21:56 Patient has correct armband on for positive identification. Placed in gown. Bed in low bb position. Call light in reach. Side rails up X 1. Pulse ox on. NIBP on. Warm blanket given. 21:59 Urine Microscopic Only Sent. lt1 22:36 Miguel Crockett MD is Referral Physician. rn 22:50 IV discontinued, intact, bleeding controlled, No redness/swelling at site. Pressure bb dressing applied. 23:00 No provider procedures requiring assistance completed. bb Administered Medications: 21:55 Drug: NS 0.9% 1000 ml Route: IV; Rate: 1000 ml; Site: right antecubital; bb 22:50 Follow up: IV Status: Completed infusion; IV Intake: 1000ml bb :55 Drug: GI Cocktail without - (Maalox Suspension 30 ml, Lidocaine Liquid 2 % 15 bb ml) Route: PO; 22:38 Follow up: Response: Marked relief of symptoms bb :55 Drug: Pepcid 20 mg Route: IVP; Site: right antecubital; bb 22:38 Follow up: Response: Marked relief of symptoms bb 22:13 CANCELLED (Other Intervention Used): Pepcid 20 mg PO once bb Intake: 22:50 IV: 1000ml; Total: 1000ml. bb Outcome: 22:37 Discharge ordered by . rn 23:00 Discharged to home ambulatory. bb 23:00 Condition: stable 23:00 Discharge instructions given to patient, Instructed on discharge instructions, follow up and referral plans. medication usage, Demonstrated understanding of instructions, follow-up care, medications, Prescriptions given X 1. 23:01 Patient left the ED. bb Signatures: Sue Limon RN RN aj Ballard, Brenda, RN RN bb Nieto, Roman, MD MD rn Tran, Leah lt1 Corrections: (The following items were deleted from the chart) : 21:55 Pepcid 20 mg PO bb bb
[2019-03-29 01:44] VITALS: BP 99/61; TEMP 98.2; O2SAT 98
== END 2019-03-28 23:01 | disposition home or self-care (01) ==
LOC: ER 21:06
DX: K29.70 Gastritis, unspecified, without bleeding (principal)
CPT/HCPCS: 36415; 80048; 80076; 81003; 81015; 81025; 83690; 85025; 96361; 96374; 99284; J7030

== ENCOUNTER 2024-12-16 17:34 | Emergency (ER) | payer SELFPAY ==
--- OUTSIDE RECORDS SUMMARY | 2024-12-16 17:37 | XMS REPORT | Continuity of Care Document ---
Author Name Unknown Address [address] [address] [place] [address] Organization [facility] Address [address] [address] [place] [address] Care Team Providers Care Core Shaper Sides Name Role Phone Pcp, Patient Does Not Have A Primary Care Physic randi Joseph CHINCHILLA Attending Clinician Unavailable Joseph Mcknight Attending Clinician [phone] BASSAM JOHNSON Attending Clinician Unavailable Bassam Johnson MD Attending Clinician [phone] Doctor Unassigned, [place] Attending Clinician U Emerson Wade MD Attending Clinician [phone] EMERSON HUNTLEY Attending Clinician Unavailable Taye Bynum MD Attending Clinician [phone] Lab, Adc Fam Pob I Attending Clinician Unavailab Paulina Curtis Attending Clinician [phone] PAULINA MARIEE Attending Clinician Unavailable Payers Payer Name Policy Type Policy Number Effective Date Expirati on Date Source [facility] [id number] 2022 00:00:00 Problems Condition Name Condition Details Condition Category Status Onset Date Resolution Date Last Treatment Date Treating Clinician Comments Source Nexplanon insertion Nexplanon insertion Disease Active 06-23 00:00: 00 [facility] Contracept cam management Contracept cam management Disease Active 02-01 00:00: 00 [facility] Tobacco use during Tobacco use during Disease Active 11-21 00:00: 00 Overview: Formattin g of this note might be different from the original. Quit with [facility] Obesity (BMI 30-39.9) Obesity (BMI 30-39.9) Disease Active 2016-10 00:00: 00 [facility] Asthma Asthma Disease Active 2016-10 00:00: 00 [facility] Allergies, Adverse Reactions, Alerts Allergy Name Allergy Type Status Severity Reaction(s) Onset Date Inactive Date Treating Clinician Comments Source NO KNOWN ALLERGIE S Drug Class Active [facility] Social History Social Habit Start Date Stop Date Quantity Comments Source History SDOH Alcohol Frequency [facility] History SDOH Alcohol Std Drinks [facility] History SDOH Alcohol Binge [facility] Alcohol intake 2023-03-18 00:00:00 2023-03-18 00:00:00 Current drinker of alcohol (finding) [facility] Exposure to SARS-CoV-2 (event) 2022-03-12 00:00:00 2022-03-22 15:09:00 Not sure [facility] Alcohol Comment 2022-03-22 00:00:00 2022-03-22 00:00:00 pt states "i drink frequently" [facility] Tobacco use and exposure 2018-06-23 00:00:00 2018-06-23 00:00:00 Smokeless tobacco non-user [facility] Tobacco Comment 2017-09-19 00:00:00 2017-09-19 00:00:00 Pt was smoking 4 cigarretes a day. [facility] History of tobacco use 2014-09-19 00:00:00 2017-08-25 00:00:00 Cigarette Smoker [facility] Sex Assigned At 2000 00:00:00 2000 00:00:00 [facility] Smoking Status Start Date Stop Date Source Smokes tobacco daily 2018-06-23 00:00:00 [facility] Medications Ordered Medication Name Filled Medication Name Start Date Stop Date Current Medication? Ordering Clinician Indication Dosage Frequency Signature (SIG) Comments Components Source erythromyci n (ILOTYCIN) 5 mg/gram (0.5 %) ophthalmic ointment 0.5 Inch 03-19 02:45: 00 03-19 02:44 :00 No .5[in_u s] 0.5 Inch, Both Eyes, ONCE, 1 dose, On Tue03/18/23 at 2145, JEREMY [facility] erythromyci n 5 mg/gram (0.5 %) ophthalmic ointment 03-18 00:00: 00 Yes [id number] 9104 .5[in_u s] Place 0.5 Inches in both eyes 4 (four) times daily. Continue until you follow up with eye doctor. [facility] methylPREDN ISolone 4 mg tablets 12-18 00:00: 00 Yes [id number] Take by mouth SEE-INSTRU CTIONS. follow package directions [facility] albuterol 90 mcg/actuati on inhaler 04-21 00:00: 00 Yes 2{puff} Inhale 2 Puffs every 6 (six) hours as needed for Wheezing or Shortness of Breath. [facility] albuterol 90 mcg/actuati on inhaler 12-19 00:00: 00 Yes [id number] 2{puff} Inhale 2 Puffs every 6 (six) hours as needed for Wheezing or Shortness of Breath. [facility] Vital Signs Vital Name Observation Time Observation Value Comments S ource Heart rate 2023-03-19 02:41:00 113 /min [facility] Oxygen saturation in Arterial blood by Pulse oximetry 2023-03-19 02:41:00 97 /min [facility] Systolic blood pressure 2023-03-19 01:30:00 165 mm[Hg] [facility] Diastolic blood pressure 2023-03-19 01:30:00 91 mm[Hg] [facility] Body temperature 2023-03-19 01:30:00 38 Tracy [facility] Respiratory rate 2023-03-19 01:30:00 20 /min [facility] Body height 2023-03-19 01:30:00 157.5 cm [facility] Body weight 2023-03-19 01:30:00 154.677 kg [facility] BMI 2023-03-19 01:30:00 62.37 kg/m2 [facility] Respiratory rate 2022-03-22 20:12:00 18 /min [facility] Body height 2022-03-22 20:12:00 157.5 cm [facility] Body weight 2022-03-22 20:12:00 150.141 kg [facility] BMI 2022-03-22 20:12:00 60.54 kg/m2 [facility] Systolic blood pressure 2022-03-22 20:12:00 130 mm[Hg] [facility] Diastolic blood pressure 2022-03-22 20:12:00 76 mm[Hg] [facility] Heart rate 2022-03-22 20:12:00 56 /min [facility] Body temperature 2022-03-22 20:12:00 36.78 Tracy [facility] Procedures Procedure Date / Time Performed Performing Clinician Source NOTICE OF PRIVACY PRACTICES 2023-03-19 01:23:30 Doctor Unassigned, [place] [facility] CONSENT/REFUSAL FOR DIAGNOSIS AND TREATMENT 2023-03-19 01:22:30 Doctor Unassigned, [place] [facility] GC & CHLAMYDIA AMPLIFIED ASSAY 2022-03-22 21:25:00 Pepe Bassam [facility] TRICHOMONAS AMPLIFIED ASSAY 2022-03-22 21:25:00 Pepe Bassam [facility] PAP SMEAR-LIQUID BASED-CP 2022-03-22 21:25:00 Pepe Bassam [facility] Encounters Start Date/Time End Date/Time Encounter Type Admission Type Attending Clinicians Care Facility Care Department Encounter ID Source 2023-04-27 11:28:12 2023-04-27 11:28:12 Outpatient [facility] [id number] Mulugeta Antunez Eladio 2023-03-18 20:34:00 2023-03-18 21:53:00 Emergency X Joseph CHINCHILLA [facility] [id number] [facility] 2023-03-18 20:34:00 2023-03-18 21:53:00 Emergency Joseph Chinchilla [facility] [id number] [facility] 2022-03-22 15:30:00 2022-03-22 16:44:18 Outpatient R BASSAM JOHNSON [facility] [id number] [facility] 2022-03-22 15:30:00 2022-03-22 16:44:18 Outpatient R PEPE BASSAM [facility] [id number] [facility] 2022-03-22 15:30:00 2022-03-22 16:44:18 Office Visit Pepe Bassam [facility] [id number] [facility] 2022-03-22 00:00:00 2022-03-22 00:00:00 Orders Only Doctor Unassigned, [place] [facility] [id number] [facility] 2021-12-18 12:29:00 2021-12-18 14:51:00 Emergency Emerson Huntley [facility] [id number] [facility] 2021-12-18 12:29:00 2021-12-18 14:51:00 Emergency X EMERSON HUNTLEY [facility] [id number] [facility] 2020-09-23 00:00:00 2020-09-23 00:00:00 Telephone Taye Bynum [facility] [id number] [facility] 2020-09-22 17:12:44 2020-09-22 17:32:44 Laboratory Only Lab, Adc Fam Pob Paulina Martinez [facility] [id number] [facility] 2020-09-22 17:00:00 2020-09-22 17:00:00 Outpatient PAULINA LEE [facility] [id number] [facility]
[2024-12-16] MEDS ORDERED: ACETAMINOPHEN 500 MG TAB ONE (18:18)
--- NOTE | 2024-12-16 18:51 | EDPHYS ---
Physician Documentation [facility] Name: Brenda Nguyen Age: 24 yrs Sex: Female : 2000 Arrival Date: 12/16/2024 Time: 17:34 Bed 14 Private MD: ED Physician Jose Umana HPI: 12/16 17:57 This 24 yrs old Female presents to ER via Ambulatory with complaints of Hand cp Injury. 17:57 The patient or guardian reports injury, a laceration, irregular. The complaints affect cp the right hand. Context: resulted from using own fist to strike, a window. Onset: The symptoms/episode began/occurred last night. Associated signs and symptoms: The patient has no apparent associated signs or symptoms. Discussed recommendation of xray of right hand r/o foreign body and/or fracture. Patient declines xray at this time. Patient reports Tetanus immunization is UTD. 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 - Infectious Disease History:: Denies. - Social history:: Smoking status: Patient reports the use of cigarette tobacco products, denies chronic smoking, but will smoke occasionally, Reported history of juuling and/or vaping. ROS: 18:00 Skin: Positive for abrasion(s), laceration(s), of the right hand, cp 18:00 Eyes: Negative for injury, pain, redness, and discharge, cp 18:00 Constitutional: Negative for chills, fever, 18:00 Cardiovascular: Negative for chest pain, palpitations, 18:00 Respiratory: Negative for cough, shortness of breath, wheezing, 18:00 Abdomen/GI: Negative for abdominal pain, vomiting, diarrhea, constipation, 18:00 Neuro: Negative for altered mental status, dizziness, headache, numbness, tingling, weakness, 18:00 All other systems are negative, Exam: 18:03 Constitutional: The patient appears in no acute distress, alert, awake, non-toxic, well cp developed, well nourished, obese, 18:03 Head/Face: Normocephalic, atraumatic. cp 18:03 Neck: ROM/movement: is normal, is supple, without pain, no range of motions limitations, 18:03 Chest/axilla: Inspection: normal, 18:03 Cardiovascular: Rate: tachycardic, Pulses: Pulses are 2+ in right radial artery. 18:03 Respiratory: the patient does not display signs of respiratory distress, Respirations: normal, no use of accessory muscles, no retractions, labored breathing, is not present, Breath sounds: are clear throughout, 18:03 Abdomen/GI: Exam negative for discomfort, distension, guarding, Inspection: abdomen appears normal, 18:03 Neuro: Orientation: to person, place \T\ time. Mentation: is normal, Motor: moves all fours, strength is normal, 18:45 Musculoskeletal/extremity: Extremities: noted in the right hand: multiple small skin cp tears noted dorsal side of fifth metatarsal, superficial laceration noted dorsal side proximal phalanx right index finger approximately 2.5 cm length. no active bleeding noted. no signs of tendon injury. mild swelling and no gross foreign bodies noted, ROM: full active range of motion, in the right hand, Perfusion: the extremity is normally perfused throughout, the right hand Sensation intact. Vital Signs: 17:53 BP 170 / 103; Pulse 103; Resp 15; Temp 98.4; Pulse Ox 98% on R/A; Weight 142.88 kg; cm10 Height 5 ft. 2 in. ; Pain 6/10; 18:17 BP 161 / 109; Pulse 102; Resp 18; Pulse Ox 100% ; kj2 17:53 Body Mass Index 57.61 (142.88 kg, 157.48 cm) cm10 17:53 Pain Scale: Adult cm10 MDM: 18:30 Differential diagnosis: open fracture, contusion, abrasion, simple laceration, tendon cp injury. 18:51 Medical Screening Exam initiated 18:51 Data reviewed: vital signs, nurses notes, and as a result, I will discharge patient. 18:51 I considered the following discharge prescriptions or medication management in the emergency department Medications were administered in the Emergency Department. See MAR. Counseling: I had a detailed discussion with the patient and/or guardian regarding the historical points, exam findings, and any diagnostic results supporting the discharge/admit diagnosis, to return to the emergency department if symptoms worsen or persist or if there are any questions or concerns that arise at home. Response to treatment: the patient's symptoms have mildly improved after treatment, and as a result, I will discharge patient. Special discussion: I discussed in detail with the patient the higher chance of wound infection based on his presenting history. 12/16 17:59 Order name: Wound Care: please clean and irrigate wounds; Complete Time: 18:34 cp 12/16 18:47 Order name: Wound dressing; Complete Time: 19:00 cp Administered Medications: 18:33 Drug: Acetaminophen PO 1000 mg PO once Route: PO; kj2 19:00 Follow up: Response: No adverse reaction kj2 Disposition Summary: 12/16/24 18:51 Discharge Ordered Notes: Location: Home cp Problem: new cp Symptoms: have improved cp Condition: Stable cp Diagnosis - Hand Laceration/ Open wound of hand - right cp Followup: cp - With: Private Physician - When: 2 - 3 days - Reason: Worsening of condition Discharge Instructions: - Discharge Summary Sheet cp - How to Change Your Wound Dressing cp - Nonsutured Laceration Care cp - Wound Care, Adult cp Forms: - Medication Reconciliation Form cp - Antibiotic Education cp - Prescription Opioid Use cp - Patient Portal Instructions cp - Leadership Thank You Letter cp Prescriptions: - Cephalexin 500 mg Oral Capsule - take 1 capsule ORAL route every 8 hours for 10 days; 30 capsule; Refills: 0, cp Product Selection Permitted Signatures: Rancho Biswas PA PA cp Beena Sullivan, RN RN cm10 Yarely Mitchell RN RN kj2 Corrections: (The following items were deleted from the chart) 12/17 17:14 12/16 18:45 Musculoskeletal/extremity: Extremities: noted in the right hand: multiple cp small skin tears noted dorsal side of fifth metatarsal, superficial laceration noted dorsal side proximal phalanx right index finger approximately 2.5 cm length. no active bleeding noted. no signs of tendon injury. mild swelling and no gross foreign bodies noted, cp
--- NOTE | 2024-12-16 18:51 | ER ---
Nurse's Notes [facility] Name: Brenda Nguyen Age: 24 yrs Sex: Female : 2000 Arrival Date: 12/16/2024 Time: 17:34 Bed 14 Private MD: Diagnosis: Hand Laceration/ Open wound of hand-right Presentation: 12/16 17:53 Chief complaint: Patient states: Punched a window last night and has laceration to cm10 right index finger. Pt also noted to have multiple cuts to right hand. Coronavirus screen: Client denies travel out of the [place] in the last 14 days. Ebola Screen: Patient denies travel to an Ebola-affected area in the 21 days before illness onset. Initial Sepsis Screen: Does the patient meet any 2 criteria? No. Patient's initial sepsis screen is negative. Does the patient have a suspected source of infection? No. Patient's initial sepsis screen is negative. Risk Assessment: Do you want to hurt yourself or someone else? Patient reports no desire to harm self or others. Onset of symptoms was December 16, 2024. 17:53 Method Of Arrival: Ambulatory 10 17:53 Acuity: DAIANA 4 cm10 Triage Assessment: 17:55 General: Appears in no apparent distress. uncomfortable, Behavior is calm, cooperative. cm10 Neuro: No deficits noted. Level of Consciousness is awake, alert, obeys commands, Oriented to person, place, time, situation, Appropriate for age. Respiratory: No deficits noted. Airway is patent Respiratory effort is even, unlabored, Respiratory pattern is regular, symmetrical. Injury Description: Abrasion sustained to medial aspect of right hand Laceration sustained to dorsal aspect of proximal phalanx of right index finger. 19:01 Musculoskeletal: Parent/caregiver report the patient having pain in medial aspect of kj2 right hand and right hand and dorsal aspect of proximal phalanx of right index finger. 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 - Infectious Disease History:: Denies. - Social history:: Smoking status: Patient reports the use of cigarette tobacco products, denies chronic smoking, but will smoke occasionally, Reported history of juuling and/or vaping. Screenin:18 [facility] ED Fall Risk Assessment (Adult) History of falling in the last 3 months, kj2 including since admission No falls in past 3 months (0 pts) Confusion or Disorientation No (0 pts) Intoxicated or Sedated No (0 pts) Impaired Gait No (0 pts) Mobility Assist Device Used No (0 pt) Altered Elimination No (0 pt) Score/Fall Risk Level 0 - 2 = Low Risk Maintained a safe environment, Hourly rounding (assess needs \T\ fall precautionary measures) done. Abuse screen: Denies threats or abuse. Denies injuries from another. Nutritional screening: No deficits noted. Tuberculosis screening: No symptoms or risk factors identified. Assessment: 18:14 General: Appears in no apparent distress. Behavior is calm, cooperative. Pain: kj2 Complains of pain in medial aspect of right hand and right hand and dorsal aspect of proximal phalanx of right index finger Pain currently is 4 out of 10 on a pain scale. Neuro: Level of Consciousness is awake, Oriented to person, place, time, situation. Cardiovascular: Patient's skin is warm and dry. Respiratory: Airway is patent Respiratory effort is even, unlabored. GI: No signs and/or symptoms were reported involving the gastrointestinal system. : No signs and/or symptoms were reported regarding the genitourinary system. Vital Signs: 17:53 BP 170 / 103; Pulse 103; Resp 15; Temp 98.4; Pulse Ox 98% on R/A; Weight 142.88 kg; cm10 Height 5 ft. 2 in. ; Pain 6/10; 18:17 BP 161 / 109; Pulse 102; Resp 18; Pulse Ox 100% ; kj2 17:53 Body Mass Index 57.61 (142.88 kg, 157.48 cm) cm10 17:53 Pain Scale: Adult cm10 ED Course: 17:35 Patient arrived in ED. am2 17:46 Rancho Biswas PA is PHCP. cp 17:47 Jose Umana MD is Attending Physician. cp 17:55 Triage completed. cm10 17:55 Arm band placed on right wrist. Patient placed in an exam room, on a stretcher. cm10 18:14 Yarely Mitchell, JAIDEN is Primary Nurse. kj2 18:19 Patient has correct armband on for positive identification. Provided Education on: call kj2 light. 18:20 No provider procedures requiring assistance completed. kj2 19:01 Patient did not have IV access during this emergency room visit. kj2 Administered Medications: 18:33 Drug: Acetaminophen PO 1000 mg PO once Route: PO; kj2 19:00 Follow up: Response: No adverse reaction kj2 Medication: 18:19 VIS not applicable for this client. kj2 Outcome: 18:51 Discharge ordered by . magui 18:59 Patient left the ED. kj2 19:00 Discharged to home ambulatory, kj2 19:00 Condition: stable 19:00 Discharge instructions given to patient, Instructed on discharge instructions, follow up and referral plans. Demonstrated understanding of instructions, follow-up care, Signatures: Rancho Biswas PA PA cp Moreno, Amanda am2 Beena Sullivan, RN RN cm10 Yarely Mitchell RN RN kj2
[2024-12-16 19:04] VITALS: TEMP 98.4
[2024-12-16 19:05] VITALS: BP 161/109; O2SAT 100
== END 2024-12-16 18:59 | disposition home or self-care (01) ==
LOC: ER 17:34
DX: S61.411A Laceration without foreign body of right hand, initial encounter (principal)
CPT/HCPCS: 99283